=== PATIENT | female | born 1950 | race Caucasian/White ===

== ENCOUNTER → 2019-05-13 14:25 | Outpatient (CLI) | payer MEDICARE, SELFPAY ==
--- NOTE | 2019-05-13 14:25 | MM_ITS ---
PROCEDURE: MM DIG SCREENING MAMM BI W/CAD CLINICAL INDICATION: mamm There is no personal or family history of breast cancer. COMPARISON: MAMMO DIGITAL 3D DIAGNOSTIC LEFT W R2 from 03/07/2017 MAMMO DIGITAL 3D DIAGNOSTIC LEFT W R2 from 03/20/2017 MAMMO DIGITAL 3D SCREENING BILATERAL W R2 from 03/15/2018 outside films TECHNIQUE: Standard CC and MLO images and 3D Tomosynthesis was obtained. R2 CAD reviewed. FINDINGS: Moderate diffuse fibroglandular densities are seen in the central portions of both breasts. There is a biopsy clip left breast. There is a mole marker left breast. There is minimal arterial calcification in each breast. There is a stable smoothly marginated mass upper-outer quadrant left breast associated with the biopsy clip and this likely is a fibroadenoma. There is no suspicious lesion and no suspicious microcalcifications. IMPRESSION: Moderate diffuse breast density with no suspicious lesions seen BI-RAD Category: 2 Benign Finding(s) FOLLOW-UP: 1YR 1 Year Follow-up (A letter has been sent to the patient regarding results of the study.) Dictated by: Dr. Rigo Frazier MD 05/28/2019 15:[address] Rigo Frazier MD in [place] 05/28/2019 15:43
--- NOTE | 2019-05-13 14:25 | XR_ITS ---
PROCEDURE: XR DEXA AXIAL SKELETON CLINICAL HISTORY: Bone denisity COMPARISON: No exams were available for comparison FINDINGS: Utilizing the right femoral neck bone mineral density is 0.68 grams/squared centimeter. T-score -1.[address] the patient in the osteopenic category. Ten year fracture risk for major osteoporotic fracture is calculated to be 14 percent and that for hip fracture 1.6 percent. Using L1 through L4 vertebrae total bone mineral density is 1.1 grams/squared centimeter. T-score 0.6 is compatible with normal mineralization. IMPRESSION: Osteopenia of the right femoral neck with normal mineralization of the spine. Dictated by: Beau Marsh 05/14/2019 09:14 Electronically signed by Beau Marsh in [place] 05/14/2019 09:14
== END ==
PROVIDERS: PCP Physician Assistant; Visit Provider Physician Assistant
DX: Z12.31 Encounter for screening mammogram for malignant neoplasm of breast; Z13.820 Encounter for screening for osteoporosis; Z78.0 Asymptomatic menopausal state
CPT/HCPCS: 77063; 77067; 77080

== ENCOUNTER → 2019-11-10 10:19 | Outpatient (CLI) | payer MEDICARE, SELFPAY ==
--- NOTE | 2019-11-10 10:22 | XR_ITS ---
PROCEDURE: XR HIP LT 2-3V W/PELVIS CLINICAL INDICATION: left hip pain COMPARISON: No exams were available for comparison FINDINGS: There is mild osteoarthritic change of the left hip. No fracture or dislocation. No lytic or blastic change. An AP view of the pelvis also shows mild osteoarthritis of the right hip and the right SI joint. 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
--- NOTE | 2019-11-10 10:22 | XR_ITS ---
PROCEDURE: XR LUMBAR SPINE MIN 4V CLINICAL INDICATION: Left hip pain, LLE radiculopathy COMPARISON: No exams were available for comparison FINDINGS: There is normal alignment. 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 There is mild anterolisthesis of L4 on of 4 mm. There are facet arthritic changes at L5-S1. There are mild osteoarthritic changes of the SI joints. Other findings:None. IMPRESSION: Spondylosis of the lumbar spine as described Mild osteoarthritis of the SI joints Dictated by: Juaquin Acosta MD 11/10/2019 13:09 Juaquin Acosta MD in [place] 11/10/2019 13:09
== END ==
PROVIDERS: PCP Physician Assistant; Visit Provider Physician Assistant
DX: M25.552 Pain in left hip
CPT/HCPCS: 72110; 73502

== ENCOUNTER → 2019-12-23 14:49 | Outpatient (CLI) | payer MEDICARE, SELFPAY | PROVIDERS: Visit Provider Physician Assistant | DX: N39.0 Urinary tract infection, site not specified (principal) | CPT/HCPCS: 87086; 87088; 87186 ==

== ENCOUNTER → 2020-07-13 14:37 | Outpatient (CLI) | payer MEDICARE, SELFPAY ==
[2020-07-13 14:47] LABS: Basophils # 0.1 K/mm3 (0-0.2); Basophils % 0.9 % (0.1-2.0); Eosinophils # 0.1 K/mm3 (0.0-0.4); Eosinophils % 2.5 % (0.1-12.0); Hematocrit 38.2 % (37.0-47.0); Hemoglobin 13.2 g/dL (12.2-16.2); Lymphocytes # 1.4 K/mm3 (0.7-4.5); Lymphocytes % 25.4 % (10-50); Mean Corpuscular HGB Conc 34.5 g/dL (31.8-35.4); Mean Corpuscular Hemoglobin 32.7 pg (27.0-31.2); Mean Corpuscular Volume 94.8 fl (81-99); Mean Platelet Volume 8.5 fl (7.4-10.4); Monocytes # 0.3 K/mm3 (0.1-1.0); Monocytes % 4.5 % (1.7-9.3); Neutrophils # 3.7 K/mm3 (1.8-7.8); Neutrophils % 66.6 % (37.0-80.0); Platelet Count 237 K/mm3 (142-424); Red Blood Count 4.03 M/mm3 (4.20-5.40); Red Cell Distribution Width 13.9 % (11.5-17.5); White Blood Count 5.6 K/mm3 (4.8-10.8)
[2020-07-13 14:51] LABS: Alanine Aminotransferase 46 U/L (12-78); Albumin Level 4.2 g/dl (3.5-5.0); Albumin/Globulin Ratio 1.8 (1.1-1.8); Alkaline Phosphatase 72 U/L (38-126); Anion Gap 9.3 mEq/L (5-15); Aspartate Amino Transferase 39 U/L (14-36); Bilirubin,Total 0.4 mg/dl (0.2-1.3); Blood Urea Nitrogen 11 mg/dl (7-17); Calcium 9.4 mg/dl (8.4-10.2); Carbon Dioxide 30 mmol/L (22.0-30.0); Chloride 104 mmol/L (98-107); Chol/HDL Ratio 3.4 (1-3.5); Cholesterol 219 mg/dl (140-200); Estimated Glomerular Filt Rate 83 ml/min (>60); GFR (African American) 100 ML/MIN (>60); Globulin 2.4 g/dL (1.3-3.2); Glucose 101 mg/dl (74-100); HDL Cholesterol 65 mg/dl (40-60); Potassium 4.3 mmoL/L (3.5-5.1); Sodium 139 mmol/L (136-145); Total Protein,Serum 6.6 g/dl (6.3-8.2); Triglycerides 182 mg/dl (30-150); VLDL Cholesterol 36 mg/dL (0-40)
[2020-07-13 15:03] LABS: Direct LDL Cholesterol 101.09 mg/dL (100-129)
[2020-07-13 15:09] LABS: 25-OH Vitamin D, Total 21.1 ng/mL (30-100); Free T4 (Free Thyroxine) 1.17 ng/dl (0.78-2.19)
== END ==
PROVIDERS: Visit Provider Physician Assistant
DX: I10 Essential (primary) hypertension (principal); M25.559 Pain in unspecified hip; M85.89 Other specified disorders of bone density and structure, multiple sites; K21.9 Gastro-esophageal reflux disease without esophagitis
CPT/HCPCS: 80053; 80061; 82306; 84439; 84443; 85025

== ENCOUNTER → 2020-08-10 09:22 | Outpatient (CLI) | payer MEDICARE, SELFPAY ==
--- NOTE | 2020-08-10 09:22 | MM_ITS ---
PROCEDURE INFORMATION: Exam: MG Screening 3D Mammography Exam date and time: 08/10/2020 9:22 AM Age: 70 years old Clinical indication: Encounter for screening mammogram for malignant neoplasm of breast; Additional info: Breast cancer screening by mammogram TECHNIQUE: Imaging protocol: Screening tomosynthesis and 2D mammography including computer-aided detection (CAD) when performed. COMPARISON: 1. MG MM DIG SCREENING MAMM BI W/CAD 05/13/2019 2:44 PM 2. MG MAMMO DIGITAL 3D SCREENING BILATERAL W R2 03/15/2018 1:29 PM 3. MG MAMMO DIGITAL 3D DIAGNOSTIC LEFT W R2 03/20/2017 1:36 PM FINDINGS: MAMMOGRAPHY: Breast composition: The breasts are heterogeneously dense, which may obscure small masses. Mass: No new suspicious masses. Stable 2 cm mass in the 3 o'clock position of the posterior left breast containing a biopsy clip. Architectural distortion: No suspicious distortion. Calcifications: No suspicious calcifications. Asymmetric density: None. Skin thickening: None. Axillary adenopathy: None. IMPRESSION: No mammographic evidence of malignancy. Annual screening is recommended unless otherwise clinically indicated. ASSESSMENT: BI-RADS Category 2: Benign
== END ==
PROVIDERS: PCP Physician Assistant; Visit Provider Physician Assistant
DX: Z12.31 Encounter for screening mammogram for malignant neoplasm of breast (principal)
CPT/HCPCS: 77063; 77067

== ENCOUNTER → 2020-08-20 11:01 | Outpatient (CLI) | payer MEDICARE, SELFPAY ==
--- NOTE | 2020-08-20 11:02 | MR_ITS ---
PROCEDURE INFORMATION: Exam: MR Head Without Contrast Exam date and time: 08/20/2020 11:02 AM Age: 70 years old Clinical indication: Other: HX of schwannoma removal 5+ years ago; Prior surgery; Surgery date: 6+ months; Patient HX: Removal of vestibular schwannoma removal 5+ years ago. PT states this is a check up. No prior imaging done here TECHNIQUE: Imaging protocol: MR of the head without contrast. COMPARISON: No relevant prior studies available. FINDINGS: Limitations: Evaluation of postoperative changes/residual/recurrent tumor limited by lack of intravenous contrast, as well as comparison imaging. Brain: There is parenchymal atrophy. No hemorrhage or acute infarction. Postsurgical changes in the region of the left vestibulocochlear tracks and internal acoustic opening, likely secondary to prior vestibular schwannoma resection. No definite residual/recurrent mass, although evaluation limited secondary to lack of intravenous contrast enhancement, as well as comparison imaging. Cerebral ventricles: Normal. No ventriculomegaly. Bones/joints: Unremarkable. Paranasal sinuses: Normal as visualized. No acute sinusitis. Mastoid air cells: Fluid within the left mastoid air cells. Orbital cavity: Unremarkable. Soft tissues: Unremarkable. IMPRESSION: 1. No acute intracranial abnormality. 2. Postsurgical changes in the region of the left vestibulocochlear tracks and internal acoustic opening, likely secondary to prior vestibular schwannoma resection. No definite residual/recurrent mass, although evaluation limited secondary to lack of intravenous contrast enhancement, as well as comparison imaging.
== END ==
PROVIDERS: PCP Physician Assistant; Visit Provider Physician Assistant
DX: D33.3 Benign neoplasm of cranial nerves (principal)
CPT/HCPCS: 70551

== ENCOUNTER → 2022-08-17 08:25 | Outpatient (CLI) | payer MEDICARE, SELFPAY ==
--- NOTE | 2022-08-17 08:34 | XR_ITS ---
FINAL REPORT TECHNIQUE: Bone mineral density was calculated of the lumbar spine and hip. CLINICAL HISTORY: post menopausal COMPARISON: 05/13/2019 FINDINGS: Using L1-4, the bone mineral density of the spine is 1.197 g/cm2 which is increased from 1.118 on the prior study, corresponding to T-score of 1.4. This is likely falsely elevated secondary to hypertrophic changes. In the left hip, the bone mineral density of the femoral neck is 0.690 g/cm2 which is decreased from 0.804 on the prior study, corresponding to a T-score of -1.4. FRAX 10 year fracture risk is 3.0% for a hip fracture and 18% for a major osteoporotic fracture. In the right hip, the bone mineral density of the femoral neck is 0.659 g/cm2 which is decreased from 0.737 on the prior study, corresponding to a T-score of --1.7. FRAX 10 year fracture risk is 3.9 % for a hip fracture and 19 % for a major osteoporotic fracture. NOTE: T-score: Standard deviation compared with peak bone mass of young adult mean. *Following the recommendations of the International Society of Bone densitometry, classification of hip BMD is based on the lower of two T-scores; total hip or femoral neck. IMPRESSION: Diminished bone mineral density of the lumbar spine and bilateral hips consistent with low bone density. Reviewed, Interpreted and Dictated by Samir Andersen III, MD Transcribed by Amy Enriquez Authenticated and [facility]
--- NOTE | 2022-08-17 08:35 | MM_ITS ---
PROCEDURE INFORMATION: Exam: MG Bilateral Screening 3D Mammography Exam date and time: 08/17/2022 8:44 AM Age: 72 years old Clinical indication: Screening mammogram TECHNIQUE: Imaging protocol: Bilateral Screening tomosynthesis and 2D mammography including computer-aided detection (CAD) when performed. COMPARISON: 1. MG MM DIG SCREENING MAMM BI W/CAD 08/10/2020 9:31 AM 2. MG MM DIG SCREENING MAMM BI W/CAD 05/13/2019 2:44 PM 3. MG MAMMO DIGITAL 3D SCREENING BILATERAL W R2 03/15/2018 1:29 PM FINDINGS: MAMMOGRAPHY: Breast composition: The breast is heterogeneously dense, which may obscure small masses. Mass: Stable benign-appearing subcentimeter nodules are present in the bilateral breast. No new or morphologically suspicious nodule has developed to suggest malignancy. Architectural distortion: No new or suspicious architectural distortion. Calcifications: Stable benign-appearing calcifications are present. No new or suspicious cluster of microcalcifications have developed. Asymmetric density: No new or suspicious asymmetric density is present Skin thickening: None. Axillary adenopathy: None. IMPRESSION: No mammographic evidence of malignancy. Recommend annual screening mammography unless otherwise clinically indicated. ASSESSMENT: BI-RADS category 2: Benign
== END ==
PROVIDERS: PCP Internal Medicine; Visit Provider Internal Medicine
DX: Z78.0 Asymptomatic menopausal state (principal); Z12.31 Encounter for screening mammogram for malignant neoplasm of breast
CPT/HCPCS: 77063; 77067; 77080

== ENCOUNTER 2023-11-22 08:18 | Outpatient (CLI) | payer MEDICARE, SELFPAY ==
--- NOTE | 2023-11-22 08:22 | MM_ITS ---
PROCEDURE INFORMATION: Exam: MG Bilateral Screening 3D Mammography Exam date and time: 11/22/2023 8:30 AM Age: 73 years old Clinical indication: Screening examination TECHNIQUE: Imaging protocol: Bilateral Screening tomosynthesis and 2D mammography including computer-aided detection (CAD) when performed. COMPARISON: 1. MG MM DIG SCREENING MAMM BI W/CAD 08/17/2022 8:44 AM 2. MG MM DIG SCREENING MAMM BI W/CAD 08/10/2020 9:31 AM FINDINGS: MAMMOGRAPHY: Breast composition: There are scattered areas of fibroglandular density. Mass: None. Architectural distortion: None. Calcifications: No suspicious calcifications. Asymmetric density: None. Skin thickening: None. Axillary adenopathy: None. IMPRESSION: No mammographic evidence of malignancy. Annual screening is recommended unless otherwise clinically indicated. ASSESSMENT: BI-RADS Category 1: Negative
--- NOTE | 2023-11-22 08:22 | XR_ITS ---
FINAL REPORT CLINICAL HISTORY: SCREENING COMPARISON: None FINDINGS: Using L1-4, the bone mineral density of the spine is 1.225 g/cm2, corresponding to T-score of 1.6 which is within normal limits. Using the left hip, the bone mineral density of the femoral neck is 0.775 g/cm2, corresponding to a T-score of -1.4 which is consistent with osteopenia. Using the right hip, the bone mineral density of the femoral neck is 0.707 g/cm2, corresponding to a T-score of -1.3 which is consistent with osteopenia. FRAX 10 year fracture risk is 3.0% for a hip fracture and 18% for a major osteoporotic fracture. NOTE: T-score: Standard deviation compared with peak bone mass of young adult mean. *Following the recommendations of the International Society of Bone densitometry, classification of hip BMD is based on the lower of two T-scores; total hip or femoral neck. IMPRESSION: Diminished bone mineral density consistent with osteopenia. Reviewed, Interpreted and Dictated by Aiden Goyal MD Transcribed by Amy Enriquez Authenticated and . [facility]
== END 2023-11-22 23:59 | disposition home or self-care (01) ==
LOC: RAD 08:18
PROVIDERS: PCP Internal Medicine; Visit Provider Internal Medicine
DX: Z12.31 Encounter for screening mammogram for malignant neoplasm of breast (principal); M85.88 Other specified disorders of bone density and structure, other site
CPT/HCPCS: 77063; 77067; 77080

== ENCOUNTER 2025-03-02 10:22 | Outpatient (CLI) | payer MEDICARE, SELFPAY ==
--- NOTE | 2025-03-02 10:24 | MM_ITS ---
PROCEDURE INFORMATION: Exam: MG Bilateral Screening 3D Mammography Exam date and time: 03/02/2025 10:34 AM Age: 74 years old Clinical indication: Screening examination TECHNIQUE: Imaging protocol: Bilateral Screening tomosynthesis and 2D mammography including computer-aided detection (CAD) when performed. COMPARISON: 1. MG MM DIG SCREENING MAMM BI W/CAD 11/22/2023 8:30 AM 2. MG MM DIG SCREENING MAMM BI W/CAD 08/17/2022 8:44 AM FINDINGS: MAMMOGRAPHY: Breast composition: There are scattered areas of fibroglandular density. Mass: None. Architectural distortion: None. Calcifications: No suspicious calcifications. Asymmetric density: None. Skin thickening: None. Axillary adenopathy: None. IMPRESSION: No mammographic evidence of malignancy. Annual screening is recommended unless otherwise clinically indicated. ASSESSMENT: BI-RADS Category 1: Negative.
== END 2025-03-02 23:59 | disposition home or self-care (01) ==
LOC: RAD 10:22
PROVIDERS: PCP Internal Medicine; Visit Provider Internal Medicine
DX: Z12.31 Encounter for screening mammogram for malignant neoplasm of breast (principal); R92.323 Mammographic fibroglandular density, bilateral breasts
CPT/HCPCS: 77063; 77067